=== PATIENT | male | born 1985 | race Caucasian/White ===

== ENCOUNTER 2016-07-06 21:58 | Emergency (ER) | payer OTHER ==
[~2016-07-06] VITALS: Ht 180.3 cm; Wt 75.0 kg
[2016-07-06] MEDS ORDERED: SERTRALINE HCL50 MG PO (22:57)
[2016-07-07] MEDS ORDERED: NAPROSYN500 MG PO (00:14)
[2016-07-07 00:22] VITALS: BP 124/82
== END 2016-07-07 00:23 | disposition home or self-care (01) ==
LOC: EME 21:58
DX: S93.401A Sprain of unspecified ligament of right ankle, initial encounter (principal); W17.81XA Fall down embankment (hill), initial encounter; F17.200 Nicotine dependence, unspecified, uncomplicated
CPT/HCPCS: 73590; 73610; 99281; 99284